=== PATIENT | female | born 1980 | race Caucasian/White ===

== ENCOUNTER 2022-06-11 12:31 | Outpatient (CLI) | payer OTHER | END 2022-06-11 12:32 | disposition home or self-care (01) | LOC: CSHLAB 12:31 | PROVIDERS: ATTEND Otolaryngology Otolaryngic Allergy | DX: J32.9 Chronic sinusitis, unspecified (principal); J01.10 Acute frontal sinusitis, unspecified | CPT/HCPCS: 85014 ==

== ENCOUNTER 2022-06-12 09:15 | Day surgery (SDC) | payer OTHER ==
[2022-06-12] MEDS ORDERED: Oxymetazoline HCl 0.05% ( 15 ML ) ONE (10:38)
[2022-06-12 10:59] VITALS: BMI 25.8
[2022-06-12] MEDS ORDERED: CEFAZOLIN 1 GM VIAL ONE (11:30)
[2022-06-12] MEDS ORDERED: Lidocaine 4% Topical Sol 50 ML BOT ONE (11:33)
[2022-06-12] MEDS ORDERED: Midazolam HCl 2 mg/2 ml Vial ONE ×2 (11:34→11:39)
[2022-06-12] MEDS ORDERED: Rocuronium Bromide 10 MG/ML (10ML VIAL) ONE (11:34)
[2022-06-12] MEDS ORDERED: PROPOFOL 20 ML ONE (11:34)
[2022-06-12] MEDS ORDERED: Glycopyrrolate 0.2 MG/ML 5 ML SYRINGE ONE (11:34)
[2022-06-12] MEDS ORDERED: Ondansetron PF 4 MG/2 ML Vial ONE (11:34)
[2022-06-12] MEDS ORDERED: Fentanyl 100 MCG/2 ML VIAL ONE ×2 (11:34→13:58)
[2022-06-12] MEDS ORDERED: Lidocaine 1% PF 5 ML VIAL ONE (11:34)
[2022-06-12] MEDS ORDERED: cefTRIAXone\\ROCEPHIN 1 GM VIAL ONE (11:49)
[2022-06-12] MEDS ORDERED: EPINEPHrine 1 MG/ML AMP ONE (12:08)
[2022-06-12] MEDS ORDERED: HYDROcodone/Acetaminophen 5/325 mg Tablet ONE (15:46)
[2022-06-16 11:14] LABS: Fungus Stain Final report (.)
== END 2022-06-12 16:48 | disposition home or self-care (01) ==
LOC: CSHSDC 09:15
PROVIDERS: ATTEND Otolaryngology Otolaryngic Allergy
PROC: 099W8ZZ Drainage of Right Sphenoid Sinus, Via Natural or Artificial Opening Endoscopic (ICD-10-PCS; principal; 2022-06-12)
PROC: 099 Ear, Nose, Sinus, Drainage (ICD-10-PCS; principal; 2022-06-12)
PROC: 09TU8ZZ Resection of Right Ethmoid Sinus, Via Natural or Artificial Opening Endoscopic (ICD-10-PCS; principal; 2022-06-12)
PROC: 8E09XBZ Computer Assisted Procedure of Head and Neck Region (ICD-10-PCS; principal; 2022-06-12)
PROC: 099Q8ZZ Drainage of Right Maxillary Sinus, Via Natural or Artificial Opening Endoscopic (ICD-10-PCS; principal; 2022-06-12)
DX: J32.4 Chronic pansinusitis (principal); J01.10 Acute frontal sinusitis, unspecified; J34.89 Other specified disorders of nose and nasal sinuses; J34.2 Deviated nasal septum; J34.3 Hypertrophy of nasal turbinates; J30.1 Allergic rhinitis due to pollen; G43.909 Migraine, unspecified, not intractable, without status migrainosus; D64.9 Anemia, unspecified; F17.200 Nicotine dependence, unspecified, uncomplicated; Z79.2 Long term (current) use of antibiotics; Z79.899 Other long term (current) drug therapy; Z88.8 Allergy status to other drugs, medicaments and biological substances
CPT/HCPCS: 87070; 87102; 87205; 87206; 88305; C2625; J0171; J0690; J0696; J2250; J2405; J2704; J3010